=== PATIENT | male | born 1975 | race Caucasian/White ===

== ENCOUNTER 2021-08-23 12:44 | Emergency (ER) | payer SELFPAY ==
[~2021-08-23] VITALS: Ht 200 cm; Wt 132.0 kg
[2021-08-23] MEDS ORDERED: morphine INJ 10 MG/ML 1ML (SYR OR VIAL) IVP ONE (13:00)
[2021-08-23] MEDS ORDERED: NITROGLYCERIN 0.4 MG SL TABS BTL 25'S SL PRN (13:00)
--- NOTE | 2021-08-23 13:03 | ED Chest Pain ---
General Stated Complaint: CHEST PAIN Source: patient History of Present Illness Date Seen by Provider: Aug 23, 2021 Time Seen by Provider: 12:46 Initial Comments 46-year-old male presenting with complaints of intermittent sharp chest pain since yesterday. He states that feels similar to when he has had prior heart attack and bypass. He has increased pain today with exertion and activity. He has no nausea, vomiting, shortness of breath, diaphoresis. He did take a full adult aspirin this morning. He has pain going into his left arm and left jaw. He states the pain was worse as he was getting gas for his truck. 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 He had 4 vessel bypass for his heart last year when he was in [place]. 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 He states that he was taken off Eliquis when he had bypass surgery and he is now just on Aspirin for a blood thinner. 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 po TIRE INSTALLER: Yes NTG SL TIRE INSTALLER: No Associated Symptoms: No abdominal pain, No back pain, No diaphoresis, No dizziness, No edema, No fatigue, No fever/chills, No headache, No heartburn, No nausea/vomiting, No rash, No shortness of breath, No swelling/lump in chest, No syncope, No weakness Allergies and Home Medications Allergies Coded Allergies: No Known Drug Allergies (Unverified , 08/23/21) Patient Home Medication List Home Medication List Reviewed: Yes Review of Systems Review of Systems Constitutional: No chills, No diaphoresis, No fever EENTM: No Symptoms Reported Respiratory: No Symptoms Reported Cardiovascular: See HPI Gastrointestinal: No Symptoms Reported Genitourinary: No Symptoms Reported Musculoskeletal: no symptoms reported Skin: no symptoms reported Psychiatric/Neurological: No Symptoms Reported Past Ugbweef-Taeiwv-Hyeoqk Hx Patient Social History Tobacco Use?: No Smoking Status: Former Smoker Substance use?: No Past Medical History Surgery/Hospitalization HX: DVT left leg, Stents left leg, CABG, CAD, RI, DM, COPD, HTN Surgeries: Yes CABG, Open Heart Surgery Respiratory: Yes COPD Cardiac: Yes Heart Attack, High Cholesterol, Hypertension Neurological: No Genitourinary: No Physical Exam Vital Signs Vital Signs - First Documented 08/23/21 13:02 Temp 36.6 Pulse 95 Resp 15 B/P (MAP) 133/73 (93) Pulse Ox 100 O2 Delivery Room Air Capillary Refill : Height, Weight, BMI Height: '" Weight: lbs. oz. 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 II-XII Norm as Tested Skin: Normal Color, Warm/Dry Progress/Results/Core Measures Results/Orders Lab Results Laboratory Tests Test 08/23/21 12:55 08/23/21 14:58 Range/Units White Blood Count 7.4 4.3-11.0 10^3/uL Red Blood Count 4.59 4.30-5.52 10^6/uL Hemoglobin 13.0 L 13.3-17.7 g/dL Hematocrit 40 40-54 % Mean Corpuscular Volume 87 80-99 fL Mean Corpuscular Hemoglobin 28 25-34 pg Mean Corpuscular Hemoglobin Concent 33 32-36 g/dL Red Cell Distribution Width 12.9 10.0-14.5 % Platelet Count 362 130-400 10^3/uL Mean Platelet Volume 9.8 9.0-12.2 fL Immature Granulocyte % (Auto) 0 % Neutrophils (%) (Auto) 60 42-75 % Lymphocytes (%) (Auto) 31 12-44 % Monocytes (%) (Auto) 5 0-12 % Eosinophils (%) (Auto) 4 0-10 % Basophils (%) (Auto) 0 0-10 % Neutrophils # (Auto) 4.5 1.8-7.8 10^3/uL Lymphocytes # (Auto) 2.3 1.0-4.0 10^3/uL Monocytes # (Auto) 0.4 0.0-1.0 10^3/uL Eosinophils # (Auto) 0.3 0.0-0.3 10^3/uL Basophils # (Auto) 0.0 0.0-0.1 10^3/uL Immature Granulocyte # (Auto) 0.0 0.0-0.1 10^3/uL Prothrombin Time 12.6 12.2-14.7 SEC INR Comment 0.9 0.8-1.4 Activated Partial Thromboplast Time 25 24-35 SEC D-Dimer 0.23 0.00-0.49 UG/ML Sodium Level 140 135-145 MMOL/L Potassium Level 4.3 3.6-5.0 MMOL/L Chloride Level 101 98-107 MMOL/L Carbon Dioxide Level 26 21-32 MMOL/L Anion Gap 13 5-14 MMOL/L Blood Urea Nitrogen 22 H 7-18 MG/DL Creatinine 1.33 H 0.60-1.30 MG/DL Estimat Glomerular Filtration Rate 66 BUN/Creatinine Ratio 17 Glucose Level 203 H 70-105 MG/DL Calcium Level 9.5 8.5-10.1 MG/DL Corrected Calcium 8.5-10.1 MG/DL Magnesium Level 1.8 1.6-2.4 MG/DL Total Bilirubin 1.1 H 0.1-1.0 MG/DL Aspartate Amino Transf (AST/SGOT) 28 5-34 U/L Alanine Aminotransferase (ALT/SGPT) 44 0-55 U/L Alkaline Phosphatase 87 40-136 U/L Myoglobin 52.7 10.0-92.0 NG/ML Troponin I < 0.30 < 0.30 <0.30 NG/ML Pro-B-Type Natriuretic Peptide 16.3 <75.0 PG/ML Total Protein 7.8 6.4-8.2 GM/DL Albumin 4.9 H 3.2-4.5 GM/DL Lipase 30 8-78 U/L My Orders Orders - CELINA SIEGEL MD Cbc With Automated Diff (08/23/21 12:57) Magnesium (08/23/21 12:57) Chest 1 View Ap/Pa Only (08/23/21 12:57) Ekg Tracing (08/23/21 12:57) Comprehensive Metabolic Panel (08/23/21 12:57) Myoglobin Serum (3/2/22 12:57) Protime With Inr (08/23/21 12:57) Partial Thromboplastin Time (08/23/21 12:57) O2 (08/23/21 12:57) Monitor-Rhythm Ecg Trace Only (08/23/21 12:57) Nitroglycerin 0.4 Mg Btl 25's (Nitrostat (08/23/21 13:00) Ed Iv/Invasive Line Start (08/23/21 12:57) Lipase (08/23/21 12:57) Troponin I Fs (08/23/21 12:57) Probnp Fs (08/23/21 12:57) Morphine Injection (Morphine Injection (08/23/21 13:00) Fibrin Degradation Products (08/23/21 13:08) Ns Iv 500 Ml (Sodium Chloride 0.9%) (08/23/21 13:50) Ekg Tracing (08/23/21 14:33) Troponin I Fs (08/23/21 14:45) Medications Given in ED Current Medications Medications Dose Ordered Sig/De Route Start Time Stop Time Status Last Admin Dose Admin Morphine Sulfate 2 mg ONCE ONCE IVP 08/23/21 13:00 08/23/21 13:01 DC 08/23/21 13:07 2 MG Nitroglycerin 0.4 mg UD PRN SL 08/23/21 13:00 08/23/21 13:06 0.4 MG Vital Signs/I&O 08/23/21 13:02 Temp 36.6 Pulse 95 Resp 15 B/P (MAP) 133/73 (93) Pulse Ox 100 O2 Delivery Room Air Progress Progress Note #1: Progress Note Check labs as well as electrocardiogram and chest x-ray. He had aspirin already today so will defer that but add on nitroglycerin and morphine to try and help with his chest pain at 4 out of 10. His electrocardiogram shows sinus rhythm without ST elevation. He does have global T wave flattening. There is no prior tracing available for comparison. Differential diagnosis includes myocardial function, pulmonary embolism, pneumonia, pleuritic chest pain, heart failure Progress Note #2: Progress Note Patient reports resolution of his pain after medication in the ED. He has some relative hypotension after the medication. However patient denies any dizziness or feeling lightheaded. His initial labs did not demonstrate any acute significant abnormality to account for his symptoms. He had a negative D-dimer. His initial troponin was less than 0.3. His initial electrocardiogram did not show acute ST elevation. Chest x-ray was not showing any acute process. Discussed results with patient and his . Since he was not having any further pain at this point will plan on getting repeat enzymes to ensure that they are not climbing since he had pain on arrival to the ED. However it is reassuring that his enzymes are negative after having pain since yesterday. He did have some mild renal insufficiency so a 500 mL bolus of normal saline was ordered to help with hydration. He does take Lasix so the mild elevation of his creatinine may be related to this. Progress Note #3: Progress Note 1433 patient reported having sharp pain in his chest again but this time it was not radiating to his jaw or shoulder. He still had no shortness of breath or nausea or diaphoresis with it. A repeat electrocardiogram does not show any ST elevation. And appears similar to his initial electrocardiogram. Advised patient that it would be safe for her to be admitted and have cardiology evaluate him now rather than wait until he gets home to [place] since it is over 8 hours to get home. Patient was not willing to do that and wanted to wait and get the repeat troponin done at 3 PM. He states if his repeat troponin was negative still he would want to sign out and go home to see his regular automation controls expert. If his repeat troponin is elevated and showing signs of heart damage and a heart attack then he would be willing to go see the automation controls expert and have something done today. Will reorder a troponin for 1500. Progress Note #4: Time: 15:31 Progress Note Repeat Troponin I still <0.3 and updated pt and . He still refused admit but states he will go to see his Stone Setter Apprentice as soon as he gets back to [place] bec ause he does not want to see a new automation controls expert and have to start from scratch with testing. His Stone Setter Apprentice knows what was done for his bypass and what his heart looked like when he was there so he prefers to go see him. He states he understands the risk of travelling on to [place] but is wanting to do that rather than be admitted locally for Cardiology to see him. He was advised to stop and be re-evaluated if he has recurrent symptoms or worsening symptoms before he gets home to [place]. Initial ECG Impression Date: Aug 23, 2021 Initial ECG Impression Time: 12:51 Initial ECG Rate: 94 Initial ECG Rhythm: Normal Sinus Initial ECG Comparisson: No Previous ECG Available Comment Normal sinus rhythm with a heart rate of 94 bpm. ID interval [address] elevation. There is global T wave flattening. There is no prior tracing available for comparison. QT interval 351 ms with a QTc interval 439 ms. EKG : EKG Time: 14:38 Rate: 92 Rhythm: Normal Sinus ECG Comparisson: Unchanged Comment Normal sinus rhythm with a heart rate of 92 bpm. ID interval 153 ms. He has no acute ST elevation. He continues to have global T wave flattening. His QT interval is 340 ms with a QTc interval of 421 ms. Overall this appears similar to his initial electrocardiogram. Diagnostic Imaging Diagonstic Imaging: Xray Plain Films/CT/US/NM/MRI: chest Comments NAME: [facility] REC#: [id number] PT STATUS: REG ER : 1975 PHYSICIAN: CELINA SIEGEL MD ADMIT DATE: 08/23/21/ER FS Draft Date of Exam:08/23/21 CHEST 1 VIEW AP/PA ONLY INDICATION: Chest pain. TIME OF EXAM: 1:00 p.m. No prior studies are available for comparison. There are changes of median sternotomy and CABG. The heart size normal. There is some slight elevation of the left hemidiaphragm. Lungs are clear. No infiltrates are detected. No effusion or pneumothorax. IMPRESSION: Status post CABG. No acute cardiopulmonary process is detected. Dictated on workstation # [id number] Dict: 08/23/21 1307 Trans: 08/23/21 1308 [facility] [id number] Interpreted by: MONTANA MARTEL MD Electronically signed by: Reviewed: Reviewed by Me Departure Impression Primary Impression: Chest pain in adult Disposition: 01 HOME, SELF-CARE Condition: Stable Departure-Patient Inst. Decision time for Depature: 15:35 Referrals: NO,LOCAL PHYSICIAN (PCP/Family) Primary Care Physician Patient Instructions: Chest Pain, Adult ED, Troponin Test Add. Discharge Instructions: Your Troponin enzyme is negative and not elevated despite having chest pain off and on since yesterday. This would mean that you are not having an acute heart attack right now but it does not rule out narrowing or mean that you are not still having arteries or blood vessels on your heart that need to be opened or have a stent placed in them. You need to see a Stone Setter Apprentice as soon as possible and if you have further chest pains then you should stop and be rechecked. CELINA SIEGEL MD Aug 23, 2021 13:03
[2021-08-23 13:04] LABS: BASOPHILS % (AUTO) 0 % (0-10); EOSINOPHILS # (AUTO) 0.3 10^3/uL (0.0-0.3); EOSINOPHILS % (AUTO) 4 % (0-10); HEMATOCRIT 40 % (40-54); LYMPHOCYTES # (AUTO) 2.3 10^3/uL (1.0-4.0); LYMPHOCYTES % (AUTO) 31 % (12-44); MEAN CORPUSCULAR HEMOGLOBIN 28 pg (25-34); MEAN CORPUSCULAR HGB CONC 33 g/dL (32-36); MEAN CORPUSCULAR VOLUME 87 fL (80-99); MEAN PLATELET VOLUME 9.8 fL (9.0-12.2); MONOCYTES # (AUTO) 0.4 10^3/uL (0.0-1.0); MONOCYTES % (AUTO) 5 % (0-12); NEUTROPHILS # (AUTO) 4.5 10^3/uL (1.8-7.8); NEUTROPHILS % (AUTO) 60 % (42-75); PLATELET COUNT 362 10^3/uL (130-400); WHITE BLOOD COUNT 7.4 10^3/uL (4.3-11.0)
--- NOTE | 2021-08-23 13:08 | Diagnostic Imaging Report ---
INDICATION: Chest pain. TIME OF EXAM: 1:00 p.m. No prior studies are available for comparison. There are changes of median sternotomy and CABG. The heart size normal. There is some slight elevation of the left hemidiaphragm. Lungs are clear. No infiltrates are detected. No effusion or pneumothorax. IMPRESSION: Status post CABG. No acute cardiopulmonary process is detected. Dictated by: Dictated on workstation # [id number]
[2021-08-23 13:15] LABS: INR 0.9 (0.8-1.4); PROTHROMBIN TIME PATIENT 12.6 SEC (12.2-14.7)
[2021-08-23 13:37] LABS: BUN/CREATININE RATIO 17; CARBON DIOXIDE 26 MMOL/L (21-32); CHLORIDE 101 MMOL/L (98-107); CREATININE SERUM 1.33 MG/DL (0.60-1.30); GFR ESTIMATED 66; POTASSIUM 4.3 MMOL/L (3.6-5.0); SODIUM 140 MMOL/L (135-145)
[2021-08-23 13:38] LABS: ALANINE AMINOTRANSFERASE 44 U/L (0-55); ALBUMIN 4.9 GM/DL (3.2-4.5); ALKALINE PHOSPHATASE 87 U/L (40-136); BILIRUBIN,TOTAL 1.1 MG/DL (0.1-1.0); CALCIUM 9.5 MG/DL (8.5-10.1); GLUCOSE 203 MG/DL (70-105); LIPASE 30 U/L (8-78); MAGNESIUM 1.8 MG/DL (1.6-2.4); TOTAL PROTEIN 7.8 GM/DL (6.4-8.2)
[2021-08-23] MEDS ORDERED: NS IV 500 ML 500 ML IV STA (13:50)
[2021-08-23 15:55] VITALS: BP 118/79
== END 2021-08-23 15:50 | disposition home or self-care (01) ==
LOC: ER FS 12:46
DX: R07.9 Chest pain, unspecified (principal); Z87.891 Personal history of nicotine dependence; Z79.01 Long term (current) use of anticoagulants; Z79.82 Long term (current) use of aspirin
CPT/HCPCS: 36415; 71045; 80053; 83690; 83735; 83874; 83880; 84484; 85025; 85379; 85610; 85730; 93005